=== PATIENT | female | born 1995 | race Caucasian/White ===

== ENCOUNTER 2018-03-06 18:14 | Emergency (ER) | payer OTHER ==
[2018-03-06 18:21] VITALS: BP 122/63
--- NOTE | 2018-03-06 19:15 | ER Document Report ---
ED Medical Screen (RME) - General Chief Complaint: Vaginal Bleeding Stated Complaint: ABNORMAL BLEEDING Time Seen by Provider: 03/06/18 18:49 TRAVEL OUTSIDE OF THE [place] IN LAST 30 DAYS: No - HPI Notes: 03/06/18 19:14 Patient is a 22-year-old female that presents to the emergency department for chief complaint of vaginal bleeding. Patient reports vaginal bleeding with small clots after sexual intercourse today. Currently the bleeding has stopped. She has had [facility] care already this and has had an intrauterine gestation confirmed with ultrasound. Her due date is 09/05/18 ROS: GENERAL: Denies fever of chills CV: Denies chest pain PHYSICAL EXAMINATION: GENERAL: Well-appearing, well-nourished and in no acute distress. HEAD: Atraumatic, normocephalic. EYES: Pupils equal round extraocular movements intact, conjunctiva are normal. ENT: Nares patent NECK: Normal range of motion LUNGS: No respiratory distress Musculoskeletal: Normal range of motion NEUROLOGICAL: Normal speech, normal gait. PSYCH: Normal mood, normal affect. MDM: Patient seen and examined for rapid initial assessment. Vital signs reviewed. A comprehensive ED assessment and evaluation of the patient, analysis of test results and completion of the medical decision making process will be conducted by additional ED providers. - Related Data Allergies/Adverse Reactions: cephalexin [From Keflex] Allergy (Verified 03/06/18 18:18) Past Medical History - General Last Menstrual Period: 11/29/17 - Social History Chew tobacco use (# tins/day): No Frequency of alcohol use: None Drug Abuse: None Renal/ Medical History: Denies: Hx Peritoneal Dialysis Past Surgical History: Reports: Hx Nose Surgery Physical Exam - Vital signs Vitals: Temp Pulse Resp BP Pulse Ox 99.1 F 87 18 122/63 98 03/06/18 18:19 03/06/18 18:19 03/06/18 18:19 03/06/18 18:19 03/06/18 18:19 Course - Vital Signs Vital signs: Temp Pulse Resp BP Pulse Ox 99.1 F 87 18 122/63 98 03/06/18 18:19 03/06/18 18:19 03/06/18 18:19 03/06/18 18:19 03/06/18 18:19
[2018-03-06 19:47] LABS: ABSOLUTE EOSINOPHILS # (AUTO) 0.1 10^3/uL (0.0-0.6); ABSOLUTE MONOCYTES (AUTO) 0.5 10^3/uL (0.1-1.4); BASOPHILS % (AUTO) 0.2 % (0-2); EOSINOPHILS % (AUTO) 0.7 % (0-6); HEMOGLOBIN 12.6 g/dL (12.0-15.5); MEAN CORPUSCULAR HEMOGLOBIN 31.1 pg (27.0-33.4); RED BLOOD COUNT 4.06 10^6/uL (3.72-5.28); RED CELL DISTRIBUTION WIDTH 13.3 % (11.5-14.0); TOTAL CELLS COUNTED % (AUTO) 100 %
[2018-03-06 19:55] LABS: ABSOLUTE LYMPHOCYTES (AUTO) 1.5 10^3/uL (0.5-4.7); ABSOLUTE NEUT (AUTO) 8.1 10^3/uL (1.7-8.2); HEMATOCRIT 36.4 % (36.0-47.0); MEAN CORPUSCULAR HGB CONC 34.7 g/dL (32.0-36.0); MEAN CORPUSCULAR VOLUME 90 fl (80-97); MONOCYTES % (AUTO) 5.2 % (3-13); PLATELET COUNT 242 10^3/uL (150-450); SEGMENTED NEUTROPHILS % (AUTO) 78.9 % (42-78); WHITE BLOOD COUNT 10.2 10^3/uL (4.0-10.5)
[2018-03-06 20:03] LABS: ALANINE AMINOTRANSFERASE 9 U/L (9-52); ALBUMIN 4.4 g/dL (3.5-5.0); ALKALINE PHOSPHATASE 41 U/L (38-126); ANION GAP 10 (5-19); ASPARTATE AMINO TRANSFERASE 18 U/L (14-36); BILIRUBIN,DIRECT 0.2 mg/dL (0.0-0.4); BILIRUBIN,TOTAL 0.3 mg/dL (0.2-1.3); BLOOD UREA NITROGEN 7 mg/dL (7-20); CALCIUM 9.8 mg/dL (8.4-10.2); CARBON DIOXIDE 25 mmol/L (22-30); CHLORIDE 102 mmol/L (98-107); GLUCOSE 86 mg/dL (75-110); POTASSIUM 4.4 mmol/L (3.6-5.0); SODIUM 137.3 mmol/L (137-145); TOTAL PROTEIN 7.6 g/dL (6.3-8.2)
--- NOTE | 2018-03-06 20:27 | ER Document Report ---
ED General - General Chief Complaint: Vaginal Bleeding Stated Complaint: ABNORMAL BLEEDING Time Seen by Provider: 03/06/18 18:49 Mode of Arrival: Ambulatory Information source: Patient Notes: Patient is a 22-year-old female who presents emergency department for chief complaint of vaginal bleeding. Patient states that she is 14 weeks . She had intercourse today and noticed bright red blood afterwards. She states that the bleeding has stopped. Patient has followed up thus far in her with an [facility]. She follows up with Dr. Brewster. Patient has had an ultrasound done that confirmed an intrauterine . Her due date is 09/05/18. Patient denies any abdominal pain, nausea, vomiting, dysuria. Her blood type is A+. TRAVEL OUTSIDE OF THE [place] IN LAST 30 DAYS: No - HPI Onset: This evening Onset/Duration: Sudden Quality of pain: No pain Severity: None Pain Level: Denies Associated symptoms: None Exacerbated by: Denies Relieved by: Denies Similar symptoms previously: No Recently seen / treated by doctor: No - Related Data Allergies/Adverse Reactions: cephalexin [From Keflex] Allergy (Verified 03/06/18 18:18) Past Medical History - General Information source: Patient Last Menstrual Period: 11/29/17 - Social History Smoking Status: Never Smoker Chew tobacco use (# tins/day): No Frequency of alcohol use: None Drug Abuse: None Family History: Reviewed & Not Pertinent Patient has suicidal ideation: No Patient has homicidal ideation: No Renal/ Medical History: Denies: Hx Peritoneal Dialysis Past Surgical History: Reports: Hx Nose Surgery Review of Systems - Review of Systems Constitutional: No symptoms reported EENT: No symptoms reported Cardiovascular: No symptoms reported Respiratory: No symptoms reported Genitourinary: No symptoms reported Female Genitourinary: Vaginal bleeding Musculoskeletal: No symptoms reported Skin: No symptoms reported Hematologic/Lymphatic: No symptoms reported Neurological/Psychological: No symptoms reported -: Yes All other systems reviewed and negative Physical Exam - Vital signs Vitals: Temp Pulse Resp BP Pulse Ox 99.1 F 87 18 122/63 98 03/06/18 18:19 03/06/18 18:19 03/06/18 18:19 03/06/18 18:19 03/06/18 18:19 - Notes Notes: PHYSICAL EXAMINATION: GENERAL: Well-appearing, well-nourished and in no acute distress. HEAD: Atraumatic, normocephalic. EYES: Pupils equal round and reactive to light, extraocular movements intact, conjunctiva are normal. ENT: Nares patent, oropharynx clear without exudates. Moist mucous membranes. NECK: Normal range of motion, supple without lymphadenopathy LUNGS: Breath sounds clear to auscultation bilaterally and equal. No wheezes rales or rhonchi. HEART: Regular rate and rhythm without murmurs ABDOMEN: Soft, nontender, nondistended abdomen. No guarding, no rebound. No masses appreciated. Female : cervix closed. Bright red blood in vaginal vault. Musculoskeletal: Normal range of motion, no pitting or edema. No cyanosis. NEUROLOGICAL: Cranial nerves grossly intact. Normal speech, normal gait. Normal sensory, motor exams PSYCH: Normal mood, normal affect. SKIN: Warm, Dry, normal turgor, no rashes or lesions noted. Course - Re-evaluation Re-evalutation: 03/06/18 23:30 Labs are within normal limits. Pelvic ultrasound was done. A single live intrauterine was appreciated at 13 weeks 3 days. heart rate was 152. Pelvic exam showed a closed cervical office. There was a scant amount of bright red blood in the vaginal vault. I discussed these results with the patient. I told her that she is going to need to follow-up with her [facility] for reevaluation. I told her to maintain pelvic rest including no sexual intercourse and no tampon insertion. I instructed the patient to return to the emergency department if she begins having any worsening symptoms. Patient feels comfortable with plan of care. - Vital Signs Vital signs: Temp Pulse Resp BP Pulse Ox 99.1 F 87 18 122/63 98 03/06/18 18:19 18 18:19 03/06/18 18:19 03/06/18 18:19 03/06/18 18:19 - Laboratory Result Diagrams: 03/06/18 19:26 03/06/18 19:26 Laboratory results interpreted by me: 03/06/1818 03/06/18 19:26 19:26 19:26 Seg Neutrophils % 78.9 H Creatinine 0.47 L Beta HCG, Quant 87063.00 H Urine Blood LARGE H Discharge - Discharge Clinical Impression: Vaginal bleeding during , Threatened miscarriage Condition: Stable Disposition: HOME, SELF-CARE Instructions: Threatened Miscarriage ([facility]), Bleeding During Early ([facility]) Referrals: NASH BREWSTER MD [Primary Care Provider] - Follow up as needed
[2018-03-06 21:01] LABS: APPEARANCE,URINE CLEAR; BILIRUBIN,URINE NEGATIVE (NEGATIVE); COLOR,URINE STRAW; GLUCOSE, URINE NEGATIVE (NEGATIVE); KETONES,URINE NEGATIVE (NEGATIVE); LEUKOCYTE ESTERASE,URINE NEGATIVE (NEGATIVE); NITRITE,URINE NEGATIVE (NEGATIVE); PROTEIN,URINE NEGATIVE (NEGATIVE); URINE SPECIFIC GRAVITY 1.006; UROBILINOGEN,URINE NEGATIVE mg/dL (<2.0)
--- NOTE | 2018-03-06 23:11 | RADIOLOGY REPORT (SQ) ---
US PELVIS HISTORY: Early . Pelvic pain. COMPARISON: None. TECHNIQUE: Grayscale, color Doppler, and spectral Doppler ultrasound images of the pelvis were obtained. FINDINGS: There is an intrauterine gestational sac with a yolk sac and pole visualized. The crown-rump length measures 7.2 cm, which corresponds to 13 weeks 3 days of . heart rate is 152 bpm. The cervix is closed and measures 3.8 cm in length. The ovaries were not well visualized on this study. IMPRESSION: Single live IUP with estimated gestational age 13 weeks 3 days.
== END 2018-03-06 23:38 | disposition home or self-care (01) ==
LOC: ER 18:14
DX: O20.0 Threatened abortion (principal); Z3A.13 13 weeks gestation of pregnancy; Z88.1 Allergy status to other antibiotic agents
CPT/HCPCS: 36415; 76817; 80053; 81001; 84702; 85025; 86900; 86901; 99284

== ENCOUNTER 2020-02-29 07:04 | Inpatient (IN) | payer OTHER ==
[2020-02-29 08:02] LABS: APPEARANCE,URINE CLOUDY; BILIRUBIN,URINE NEGATIVE (NEGATIVE); COLOR,URINE YELLOW; GLUCOSE, URINE NEGATIVE (NEGATIVE); KETONES,URINE NEGATIVE (NEGATIVE); LEUKOCYTE ESTERASE,URINE LARGE (NEGATIVE); NITRITE,URINE NEGATIVE (NEGATIVE); PROTEIN,URINE 30 mg/dL (NEGATIVE); URINE SPECIFIC GRAVITY 1.016; UROBILINOGEN,URINE NEGATIVE mg/dL (<2.0)
[2020-02-29 08:19] LABS: URINE AMPHETAMINES SCREEN NEGATIVE; URINE BARBITURATES SCREEN NEGATIVE; URINE BENZODIAZEPINES SCREEN NEGATIVE; URINE COCAINE SCREEN NEGATIVE; URINE METHADONE SCREEN NEGATIVE; URINE PHENCYCLIDINE SCREEN NEGATIVE
[2020-02-29 08:28] LABS: URINE MARIJUANA (THC) SCREEN NEGATIVE
--- NOTE | 2020-02-29 09:23 | Admission Physical ---
Datetime Report Generated by CPN: 02/29/2020 09:22 CURRENT ADMISSION Chief Complaint: Uterine Contractions Admit Impression : Term, Intrauterine ; Active Labor Admit Plan: Admit to Unit; Initiate Labor Protocol ALLERGIES Medication Allergies: Yes Medication Allergies: cephalexin (03/06/2018) Latex: No Latex Allergies Food Allergies: n/a Environmental Allergies: n/a OBSTETRICAL HISTORY EDC: 02/27/2020 00:00 : 2 Para: 1 Term: 1 : 0 SAB: 0 IAB: 0 Ectopic: 0 Livin Cesareans: 0 VBACs: 0 Multiple Births: 0 Gestational Diabetes: No Rh Sensitization: No Incompetent Cervix: No DELFINO: No Infertility: No ART Treatment: No Uterine Anomaly: No IUGR: No Hx Previous C/S: No Macrosomia: No Hx Loss/Stillborn: No PIH: No Hx : No Placenta Previa/Abruption: No Depression/PP Depression: No PTL/PROM: No Post Hemorrhage: No Current Procedures: Ultrasound Obstetrical History Comments: G1- induced for pupps G2- current SEE RECORDS Alcohol: No Marijuana : No Cocaine: No Other Illicit Drugs: No Cigarettes: Never Smoker. [id number] MEDICAL HISTORY Diabetes: No Blood Transfusion: No Pulmonary Disease (Asthma, TB): No Breast Disease: No Hypertension: No Cylinder Block Hole Reliner Surgery: No Heart Disease: No Hosp/Surgery: Yes Autoimmune Disorder: No Anesthetic Complications: No Kidney Disease: No Abnormal Pap Smear: No Neuro/Epilepsy: No Psychiatric Disorders: No Other Medical Diseases: No Hepatitis/Liver Disease: No Significant Family History: No Varicosities/Phlebitis: No Trauma/Violence : No Thyroid Dysfunction: No Medical History Comments: nose surgeries in high school INFECTIOUS HISTORY Gonorrhea: No Genital Herpes: No Chlamydia: No Tuberculosis: No Syphilis: No Hepatitis: No HIV/AIDS Exposure: No Rash or Viral Illness: No HPV: No PHYSICAL EXAM General: Normal HEENT: Normal Neurologic: Normal Thyroid: Normal Heart: Normal Lungs: Normal Breast: Normal Back: Normal Abdomen: Normal Genitourinary Exam: Normal Extremities: Normal DTRs: Normal Pelvic Type: Adequate Vital Signs: Reviewed; Within Normal Limits VAGINAL EXAM Dilatation: 5 Effacement: 80 Station: -2 MEMBRANES Membranes: Intact FETUS A EGA: 40.2 Monitoring: External US FHR- Baseline: 130 Variability: Moderate 6-25bpm Accelerations: 15X15 Presentation: Vertex Admit Comment: at 40.2 wks in active labor -Admit to LDR -NPO and IVFs: LR at 125 cc/hr after 1 liter bolus -CEFM and toco -GBS neg -Hx one prior , anticipate -Desires epidural eventually PLANS FOR LABOR AND DELIVERY Labor and Delivery: None Pain Management: Epidural Feeding Preference: Breast Benefit of Breast Feed Discussed: Yes Circumcision: Yes INFORMED CONSENT Informed Consent Obtained: Vaginal Delivery; Section Delivery; Vacuum/Forceps Assist; Risks, Benefits and Alternatives Discussed Signature: with User ID: Amina : with User ID: [email or web address]
[2020-02-29] MEDS ORDERED: LIDOCAINE 1% INJ-PF (10 MG/ML) 30 ML SDV ONE (09:49)
[2020-02-29] MEDS ORDERED: OXYTOCIN 10 UNIT/ML VIAL ONE (09:49)
[2020-02-29] MEDS ORDERED: MISOPROSTOL 0.2 MG TABLET ONE (09:49)
[2020-02-29] MEDS ORDERED: OXYTOCIN/0.9 % SODIUM CHLORIDE 30 UNIT/500 ML RTUINJ ONE (09:50)
[2020-02-29 10:53] LABS: ABSOLUTE EOSINOPHILS # (AUTO) 0.1 10^3/uL (0.0-0.6); ABSOLUTE LYMPHOCYTES (AUTO) 0.8 10^3/uL (0.5-4.7); ABSOLUTE MONOCYTES (AUTO) 0.4 10^3/uL (0.1-1.4); ABSOLUTE NEUT (AUTO) 7.5 10^3/uL (1.7-8.2); BASOPHILS % (AUTO) 0.1 % (0-2); EOSINOPHILS % (AUTO) 0.6 % (0-6); HEMOGLOBIN 11.8 g/dL (12.0-15.5); LYMPHOCYTES % (AUTO) 9.4 % (13-45); MEAN CORPUSCULAR HEMOGLOBIN 31.9 pg (27.0-33.4); MEAN CORPUSCULAR HGB CONC 34.8 g/dL (32.0-36.0); MEAN CORPUSCULAR VOLUME 92 fl (80-97); PLATELET COUNT 149 10^3/uL (150-450); RED CELL DISTRIBUTION WIDTH 13.9 % (11.5-14.0); SEGMENTED NEUTROPHILS % (AUTO) 84.9 % (42-78); TOTAL CELLS COUNTED % (AUTO) 100 %; WHITE BLOOD COUNT 8.9 10^3/uL (4.0-10.5)
[2020-02-29] MEDS ORDERED: IBUPROFEN 800 MG TABLET ONE (10:54)
[2020-02-29] MEDS ORDERED: BENZOCAINE/MENTHOL AEROSOL SPRAY 56 ML ONE (11:54)
--- NOTE | 2020-02-29 12:47 | Birth Certificate Data ---
Cert Data Datetime Report Generated by CPN: 02/29/2020 12:47 CERTIFICATE DATA Delivery Provider: Celeste Linn MD (02/29/2020 07:12:Elizabeth Cantu RN) 47a. Care: Yes (02/29/2020 07:12:Elizabeth Cantu RN) 47b. Date of First Visit: 08/22/2019 00:00 (02/29/2020 07:12:Elizabeth Cantu RN) 47c. Date of Last Visit: 02/26/2020 00:00 (02/29/2020 07:12:Elizabeth Cantu RN) 47d. Number of Visits: 10 (02/29/2020 07:12:Elziabeth Cantu RN) 48a. Number of Prev Live Births: 1 (02/29/2020 07:12:Elizabeth Cantu RN) 48b. Now Livin (02/29/2020 07:12:Elizabeth Cantu RN) 48c. Live Births Now : 0 (02/29/2020 07:12:QS system process) 48d. Date of Last Live : 09/02/2018 00:00 (02/29/2020 07:12:Elizabeth Cantu RN) 48e. Losses: 0 (02/29/2020 07:12:Elizabeth Cantu RN) RISK FACTORS IN THIS 49a. Diabetes: No (02/29/2020 07:12:Elizabeth Cantu RN) 49b. Hypertension: No (02/29/2020 07:12:Elizabeth Cantu RN) 49c. Previous Births: 0 (02/29/2020 07:12:Elizabeth Cantu RN) 49d. Stillborns: No (02/29/2020 07:12:Elizabeth Cantu RN) 49d. IUGR: No (02/29/2020 07:12:Elizabeth Cantu RN) 49e. Infertility Treatment: No (02/29/2020 07:12:Elizabeth Cantu RN) 49f. Previous Cesareans: 0 (02/29/2020 07:12:Elizabeth Cantu RN) Mother's Height 50b. Height Inches: 65 (02/29/2020 07:19:QS system process) Mother's Weight 51a. Pre- Weight (lbs): 146 (02/29/2020 07:12:Elizabeth Canut RN) 51b. Weight at Delivery (lbs): 189 (02/29/2020 11:04:[employer] system process) 52. Dt Last Normal Menses Began: 05/23/2019 00:00 (02/29/2020 07:12:Elizabeth Cantu RN) Infections Present/Treated 53a. Gonorrhea: No (02/29/2020 07:12:Elizabeth Cantu RN) Results this Hospital Visit : Negative (02/29/2020 07:12:Elizabeth Cantu RN) 53b. Syphilis: No (02/29/2020 07:12:Elizabeth Cantu RN) 53c. Chlamydia: No (02/29/2020 07:12:Elizabeth Cantu RN) Results this Hospital Visit: Negative (02/29/2020 07:12:Elizabeth Cantu RN) 53d. Hepatitis B: No (02/29/2020 07:12:Elizabeth Cantu RN) Results this Hospital Visit: Negative (02/29/2020 07:12:Elizabeth Cantu RN) 53e. Hepatitis C: Negative (02/29/2020 07:12:Elizabeth Cantu RN) 53h. Mother Tested for HBsAG: Yes (02/29/2020 07:12:Elizabeth Cantu RN) 53i. Date Tested: 08/22/2019 00:00 (02/29/2020 07:12:Elizabeth Cantu RN) 53j. Test Result: Negative (02/29/2020 07:12:Elizabeth Cantu RN) Obstetric Procedures 54a, b, c. Obstetric Procedures: Ultrasound (02/29/2020 07:12:Elizabeth Cantu RN) Cigarette Smoking Cigarette Smoking: Never Smoker. [id number] (02/29/2020 07:12:Elizabeth Cantu RN) Onset of Labor 56a. PROM >12 Hrs: 0.07 (02/29/2020 07:12:QS system process) 56b. Precipitous Labor <3 Hrs: 7 (02/29/2020 07:12:QS system process) 56c. Prolonged Labor > 20 Hrs: 7 (02/29/2020 07:12:QS system process) 57a. Induction of Labor: N/A (02/29/2020 07:12:Elizabeth Cantu RN) 57c. Non-Vertex Presentation A: Vertex (02/29/2020 07:12:Elizabeth Cantu RN) 57d. Steroids - Lung Mat: None (02/29/2020 07:12:Elizabeth Cantu RN) 57d. Steroids - Lung Mat: Not Applicable (02/29/2020 07:12:Elizabeth Cantu RN) 57f. Mat [place] or Temp >100.4: 98.2 (02/29/2020 07:12:Elizabeth Cantu RN) 57g. Moderate/Heavy Meconium: Clear (02/29/2020 07:12:Elizabeth Cantu RN) 57h. Intolerance of Labor: N/A (02/29/2020 07:12:Elizabeth Cantu RN) : N/A (02/29/2020 07:12:Elizabeth Cantu RN) 57i. Epidural/Spinal Anesthesia: None (02/29/2020 07:12:Elizabeth Cantu RN) Method of Delivery 58a. Forceps - Unsuccessful A: N/A (02/29/2020 07:12:Elizabeth Cantu RN) 58b. Vacuum - Unsuccessful A: N/A (02/29/2020 07:12:Elizabeth Cantu RN) 58c. Presentation at 58c. Presentation at - A : Vertex (02/29/2020 07:12:Elizabeth Cantu RN) 58c. Presentation at - A : N/A (02/29/2020 07:12:Elizabeth Cantu RN) 58c. Presentation at - A : Cephalic (02/29/2020 07:23:Elizabeth Cantu RN) Final Route and Method of Del 58d. Baby A Route/Delivery: Vaginal (02/29/2020 10:01:Elizabeth Cantu RN) 58e. Trial of Labor Attempted: No (02/29/2020 07:12:Elizabeth Cantu RN) 58e. Trial of Labor Attempted A: N/A (02/29/2020 07:12:Elizabeth Cantu RN) 58e. Trial of Labor Attempted B: N/A (02/29/2020 07:12:Elizabeth Cantu RN) Maternal Morbidity 59b. 3rd or 4th Degree Lacs: Perineal (02/29/2020 07:12:Celeste Linn MD) 59b. 3rd or 4th Degree Lacs: First Degree (02/29/2020 07:12:Elizabeth Cantu RN) 59b. 3rd or 4th Degree Lacs: Midline laceration above the urethra (02/29/2020 07:12:Celeste Linn MD) Birthweight Baby A: 3590 (02/29/2020 07:12:Elizabeth Cantu RN) 60a. Pounds : 7 (02/29/2020 07:12:QS system process) 60b. Ounces: 15 (02/29/2020 07:12:QS system process) 61. GA at Delivery Baby A: 40.2 (02/29/2020 07:12:Elizabeth Cantu RN) : Full Term- 39- 40.6 Weeks (02/29/2020 07:12:QS system process) 62a. 5 Minute Baby A: 9 (02/29/2020 07:12:QS system process)
--- NOTE | 2020-02-29 12:47 | Delivery Summary ---
Del Sum A-C Datetime Report Generated by CPN: 02/29/2020 12:47 DELIVERY PERSONNEL DELIVERY PERSONNEL: [id number] Delivery Doctor:: Celeste Linn MD Labor and Delivery Nurse:: Elizabeth Cantu RN Dog Warden/TIN CAN LABORER: Binta Gonzales, CORE CUTTER MATERNAL INFORMATION Delivery Anesthesia: None Medications After Delivery: Pitocin 30 Units in 500ml NS/D5W Delivery QBL: 250 Maternal Complications: None Provider Comments: Called to patients room as she was complete and +3 with urge to push. Pushed through one contraction and a viable male infant was delivered. Baby was vigorous at delivery and cord clamping delayed for 30 seconds. After doubly clamping and cutting the cord, was placed skin to skin iwht Mother. Both stable. Repair as above. Uterus firm and 1 below. LABOR SUMMARY EDC: 02/27/2020 00:00 No. Babies in Womb: 1 Attempted: No Labor Anesthesia: None LABOR INFORMATION Reason for Induction: Not Applicable Onset of Labor: 02/29/2020 03:00 Complete Dilatation: 02/29/2020 10:00 Oxytocin: N/A Group B Beta Strep: negative Steroids Given: None Reason Steroids Not Administered: Not Applicable MEMBRANES Membranes Rupture Method: Spontaneous Rupture of Membranes: 02/29/2020 09:57 Length of Rupture (hr): 0.07 Amniotic Fluid Color: Clear Amniotic Fluid Amount: Moderate Amniotic Fluid Odor: Normal STAGES OF LABOR Stage 1 hr: 7 Stage 1 min: 0 Stage 2 hr: 0 Stage 2 min: 1 Stage 3 hr: 0 Stage 3 min: 3 Total Time in Labor hr: 7 Total Time in Labor min: 4 VAGINAL DELIVERY Episiotomy: None Laceration #1: Perineal Laceration Extension #1: First Degree Other Laceration: Midline laceration above the urethra Laceration Repair: Yes Laceration Repair Note: Repaired with 3-0 chromic in a running fashion Sponge Count Correct: Yes Sharps Count Correct: Yes CSECTION DELIVERY Primary Indication: N/A Secondary Indication: N/A CSection Incidence: N/A Labor: N/A Elective: N/A CSection Incision: N/A BABY A INFORMATION Delivery Date/Time: 02/29/2020 10:01 Method of Delivery: Vaginal Nurse Controlled Delivery: No Born in Route : No : N/A Forceps: N/A Vacuum Extraction: N/A Shoulder Dystocia : No PRESENTATION/POSITION BABY A Presentation: Cephalic Cephalic Presentation: Vertex Vertex Position: Right Occipital Anterior Breech Presentation: N/A PLACENTA INFORMATION BABY A Placenta Delivery Time : 02/29/2020 10:04 Placenta Method of Delivery: Spontaneous Placenta Status: Delivered SCORES BABY A Heart Rate 1 min: >100 bpm Resp Effort 1 min: Good Cry Reflex Irritability 1 min: Cough or Sneeze or Pulls Away Muscle Tone 1 min: Active Motion Color 1 min: Body [place], Extremities Blue Resuscitation Effort 1 min: Tactile Stimulation SCORE 1 MIN: 9 Heart Rate 5 min: >100 bpm Resp Effort 5 min: Good Cry Reflex Irritability 5 min: Cough or Sneeze or Pulls Away Muscle Tone 5 min: Active Motion Color 5 min: Body [place], Extremities Blue Resuscitation Effort 5 min: N/A SCORE 5 MIN: 9 INFANT INFORMATION BABY A Gestational Age at Delivery: 40.2 Gestational Status: Full Term- 39- 40.6 Weeks Outcome : Liveborn Infant Condition : Stable Infant Sex: Male IDENTIFICATION BABY A Infant Verification Date/Time: 02/29/2020 10:41 ID Band Number: [id number] Mother's Name Verified: Yes RN Verifying Infant: B Baidy RN Additional Verifying Personnel: Roz Linton RN WEIGHT/LENGTH BABY A Birthweight (gm): 3590 Infant Weight (lb): 7 Infant Weight (oz): 15 Infant Length (in): 22.00 Length (cm): 55.88 CORD INFORMATION BABY A No. Cord Vessels: 3 Nuchal Cord : Around Neck x1, Tight Cord Blood Taken: Yes-For Eval (Mom's Blood Type - or O+) Infant Suction: Mouth ASSESSMENT BABY A Infant Complications: None Physical Findings- Other: facial bruising Respirations: Appears Normal Skin to Skin: Yes Skin to Skin Time (min): 20 Wood Preserving Plant Laborer/ALS Called : No Care By: B Baidy RN Transferred To: Remains with Mother BABY B INFORMATION : N/A SIGNATURES Signature: with User ID: Amina : with User ID: [email or web address]
[2020-02-29] MEDS ORDERED: RINGERS SOLUTION,LACTATED 1,000 ML IV PRN (12:57)
[2020-02-29] MEDS ORDERED: ACETAMINOPHEN 650 MG SUPP.RECT PR PRN (13:01)
[2020-02-29] MEDS ORDERED: PROMETHAZINE HCL 25 MG TABLET PO PRN (13:01)
[2020-02-29] MEDS ORDERED: NA PHOS,M-B/NA PHOS,DI-BA (ADULT) 133 ML ENEMA PR PRN (13:01)
[2020-02-29] MEDS ORDERED: ZOLPIDEM TARTRATE 5 MG TABLET PO PRN (13:01)
[2020-02-29] MEDS ORDERED: DIPH/PERTUSS(ACELL)/TETANUS VAC/PF 0.5 ML SYR (>=10YO) IM PRN (13:01)
[2020-02-29] MEDS ORDERED: DIBUCAINE 1% OINTMENT 28 GM TP PRN (13:01)
[2020-02-29] MEDS ORDERED: MAGNESIUM HYDROXIDE SUSP 30 ML UDCUP PO PRN (13:01)
[2020-02-29] MEDS ORDERED: OXYTOCIN/0.9 % SODIUM CHLORIDE 30 UNIT/500 ML RTUINJ IV PRN (13:01)
[2020-02-29] MEDS ORDERED: BENZOCAINE/MENTHOL AEROSOL SPRAY 56 ML TOP PRN (13:01)
[2020-02-29] MEDS ORDERED: PROMETHAZINE HCL 25 MG SUPP.RECT PR PRN (13:01)
[2020-02-29] MEDS ORDERED: GLYCERIN/WITCH HAZEL LEAF 1 EACH MED..WIPE TP PRN (13:01)
[2020-02-29] MEDS ORDERED: PROMETHAZINE HCL INJ 25 MG/1 ML VIAL IV PRN (13:01)
[2020-02-29] MEDS ORDERED: DIPHENHYDRAMINE HCL 25 MG CAPSULE PO PRN (13:01)
[2020-02-29] MEDS ORDERED: PSEUDOEPHEDRINE HCL 30 MG TABLET PO PRN (13:01)
[2020-02-29] MEDS ORDERED: MEASLES,MUMPS&RUBELLA VACC/PF 0.5 ML VIAL SUBCUT PRN (13:01)
[2020-02-29] MEDS ORDERED: ACETAMINOPHEN WITH CODEINE #3 TABLET PO PRN ×2 (13:01)
[2020-02-29] MEDS: IBUPROFEN 800 MG TABLET PO SCH (19:08)
[2020-02-29] MEDS: FERROUS SULFATE 325 MG TABLET PO SCH (19:08)
[2020-02-29] MEDS: DOCUSATE SODIUM 100 MG CAPSULE PO SCH (19:08)
[2020-03-01] MEDS: IBUPROFEN 800 MG TABLET PO SCH ×3 (02:32→18:55)
[2020-03-01 07:04] LABS: HEMATOCRIT 33.4 % (36.0-47.0); HEMOGLOBIN 11.4 g/dL (12.0-15.5); MEAN CORPUSCULAR HEMOGLOBIN 31.4 pg (27.0-33.4); MEAN CORPUSCULAR HGB CONC 34.3 g/dL (32.0-36.0); MEAN CORPUSCULAR VOLUME 92 fl (80-97); PLATELET COUNT 152 10^3/uL (150-450); RED BLOOD COUNT 3.64 10^6/uL (3.72-5.28); RED CELL DISTRIBUTION WIDTH 14.2 % (11.5-14.0); WHITE BLOOD COUNT 9.2 10^3/uL (4.0-10.5)
[2020-03-01] MEDS: PRENATAL VITAMIN W DHA CAPSULE PO SCH (11:06)
[2020-03-01] MEDS: DOCUSATE SODIUM 100 MG CAPSULE PO SCH ×2 (11:06→18:54)
[2020-03-01] MEDS: SENNOSIDES/DOCUSATE 8.6-50 MG 1 EACH TABLET PO SCH (11:06)
[2020-03-01] MEDS: FERROUS SULFATE 325 MG TABLET PO SCH ×2 (11:06→18:54)
--- NOTE | 2020-03-01 14:59 | PDOC PROGRESS REPORT ---
Subjective-OB Progress Note for:: 03/01/20 Subjective: reports bleeding slowing, pain controlled with current meds. denies needs Physical Exam (OB) Vital Signs: Temp Pulse Resp BP Pulse Ox 98.2 F 79 16 118/67 99 03/01/20 08:52 03/01/20 08:00 03/01/20 08:00 03/01/20 08:00 03/01/20 08:00 Intake & Output 02/29/20 03/01/20 03/02/20 06:59 06:59 06:59 Intake Total 600 380 Balance 600 380 Weight 86.3 kg - Maternal Morbidity 59. Maternal Morbidity (serious complications experinced by the mother associated with labor and delivery: None of the above - Abdomen Description: Soft Hernia Present: No Fundal Description: Firm, Midline Fundal Height: u/3 - u/4 - Abdominal Distension: No distension Tenderness: Nontender - Extremities Lower extremities: Kael's sign - neg Calf: Normal, Nontender Objective-Diagnostic Laboratory: 03/01/20 06:31 03/01/20 06:31 WBC 9.2 RBC 3.64 L Hgb 11.4 L Hct 33.4 L MCV 92 MCH 31.4 MCHC 34.3 RDW 14.2 H Plt Count 152 Assessment and Plan(PN) - Time Spent with Patient Time with patient: Less than 15 minutes - Disposition Anticipated Discharge Disposition: Home, Self Care Anticipated Discharge Timeframe: within 24 hours
[2020-03-02] MEDS: IBUPROFEN 800 MG TABLET PO SCH ×2 (01:58→09:30)
[2020-03-02 08:45] VITALS: BP 115/70
[2020-03-02] MEDS: FERROUS SULFATE 325 MG TABLET PO SCH (09:30)
[2020-03-02] MEDS: SENNOSIDES/DOCUSATE 8.6-50 MG 1 EACH TABLET PO SCH (09:30)
[2020-03-02] MEDS: PRENATAL VITAMIN W DHA CAPSULE PO SCH (09:30)
[2020-03-02] MEDS: DOCUSATE SODIUM 100 MG CAPSULE PO SCH (09:30)
--- NOTE | 2020-03-02 11:07 | PDOC DISCHARGE SUMMARY ---
Impression - Admit/DC Date/PCP Admission Date/Primary Care Provider: 02/29/20 09:14 NAIDA CHRISTENSEN MD Discharge Date: 03/02/20 - PP Day #2, doing well, A+, rubella immune, - Discharge Diagnosis (1) (normal spontaneous vaginal delivery) Is this a current diagnosis for this admission?: Yes (2) Normal course Is this a current diagnosis for this admission?: Yes - Additional Information Resuscitation Status: Full Code Discharge Diet: Regular Discharge Activity: Activity As Tolerated, Balance Activity w/Rest, No tub bath Referrals: [facility] [Provider Group] (Please call A for a 4 week f/u.) Prescriptions: Ibuprofen [Motrin 800 mg Tablet] 800 mg PO Q8A #60 tablet Home Medications: Pnv No.95/Ferrous Fum/Folic AC [ Vitamins Tablet] 1 tab PO DAILY 03/06/18 Ibuprofen [Motrin 800 mg Tablet] 800 mg PO Q8A #60 tablet 03/02/20 HPI Reason(s) for Admission: Onset of Labor Procedures: Ultrasound Intrapartum Procedure(s): Spontaneous Vaginal Delivery Complication(s): Laceration-Perineal Laceration-Degree: 1st Hospital Course 59. Maternal Morbidity (serious complications experinced by the mother associated with labor and delivery: None of the above Results Laboratory Results: WBC 9.2 10^3/uL (4.0-10.5) 03/01/20 06:31 RBC 3.64 10^6/uL (3.72-5.28) L 03/01/20 06:31 Hgb 11.4 g/dL (12.0-15.5) L 03/01/20 06:31 Hct 33.4 % (36.0-47.0) L 03/01/20 06:31 MCV 92 fl (80-97) 03/01/20 06:31 MCH 31.4 pg (27.0-33.4) 03/01/20 06:31 MCHC 34.3 g/dL (32.0-36.0) 03/01/20 06:31 RDW 14.2 % (11.5-14.0) H 03/01/20 06:31 Plt Count 152 10^3/uL (150-450) 03/01/20 06:31 Lymph % (Auto) 9.4 % (13-45) L 02/29/20 10:22 [place] % (Auto) 5.0 % (3-13) 02/29/20 10:22 Eos % (Auto) 0.6 % (0-6) 02/29/20 10:22 Baso % (Auto) 0.1 % (0-2) 02/29/20 10:22 Absolute Neuts (auto) 7.5 10^3/uL (1.7-8.2) 02/29/20 10:22 Absolute Lymphs (auto) 0.8 10^3/uL (0.5-4.7) 02/29/20 10:22 Absolute Monos (auto) 0.4 10^3/uL (0.1-1.4) 02/29/20 10:22 Absolute Eos (auto) 0.1 10^3/uL (0.0-0.6) 02/29/20 10:22 Absolute Basos (auto) 0.0 10^3/uL (0.0-0.2) 02/29/20 10:22 Seg Neutrophils % 84.9 % (42-78) H 02/29/20 10:22 Urine Color YELLOW 02/29/20 07:11 Urine Appearance CLOUDY 02/29/20 07:11 Urine pH 7.0 (5.0-9.0) 02/29/20 07:11 Ur Specific [place] 1.016 02/29/20 07:11 Urine Protein 30 mg/dL (NEGATIVE) H 02/29/20 07:11 Urine Glucose (UA) NEGATIVE mg/dL (NEGATIVE) 02/29/20 07:11 Urine Ketones NEGATIVE mg/dL (NEGATIVE) 02/29/20 07:11 Urine Blood NEGATIVE (NEGATIVE) 02/29/20 07:11 Urine Nitrite NEGATIVE (NEGATIVE) 02/29/20 07:11 Urine Bilirubin NEGATIVE (NEGATIVE) 02/29/20 07:11 Urine Urobilinogen NEGATIVE mg/dL (<2.0) 02/29/20 07:11 Ur Leukocyte Esterase LARGE (NEGATIVE) H 02/29/20 07:11 Urine Ascorbic Acid 40 (NEGATIVE) H 02/29/20 07:11 Urine Opiates Screen NEGATIVE 02/29/20 07:11 Urine Methadone Screen NEGATIVE 02/29/20 07:11 Ur Barbiturates Screen NEGATIVE 02/29/20 07:11 Ur Phencyclidine Scrn NEGATIVE 02/29/20 07:11 Ur Amphetamines Screen NEGATIVE 02/29/20 07:11 U Benzodiazepines Scrn NEGATIVE 02/29/20 07:11 Urine Cocaine Screen NEGATIVE 02/29/20 07:11 U Marijuana (THC) Screen NEGATIVE 02/29/20 07:11 RPR NONREACTIVE (NONREACTIVE) 02/29/20 10:22 Blood Type A POSITIVE 02/29/20 10:22 Antibody Screen NEGATIVE 02/29/20 10:22 Plan Plan of Treatment: d/c home, f/up with [facility] in 4 wks for PP check Time Spent: Less than 30 Minutes
== END 2020-03-02 12:40 | disposition home or self-care (01) | DRG 807 ==
LOC: LC 07:04 → LR 09:14 → 2S 13:30
PROVIDERS: ADMIT Obstetrics & Gynecology; ATTEND Obstetrics & Gynecology
PROC: 10E0XZZ Delivery of Products of Conception, External Approach (ICD-10-PCS; principal; 2020-02-29)
PROC: 0HQ9XZZ Repair Perineum Skin, External Approach (ICD-10-PCS; 2020-02-29)
DX: O70.0 First degree perineal laceration during delivery (principal); Z37.0 Single live birth; O69.1XX0 Labor and delivery complicated by cord around neck, with compression, not applicable or unspecified; Z3A.40 40 weeks gestation of pregnancy
CPT/HCPCS: 36415; 80307; 81005; 85025; 85027; 86592; 86850; 86900; 86901; J2590; J3490